=== PATIENT | female | born 1985 | race Caucasian/White ===

== ENCOUNTER 2022-05-11 01:47 | Day surgery (SDC) | payer BC, SELFPAY ==
[2022-05-11] VITALS (18 sets, daily range): BP systolic 108–153; BP diastolic 58–94; PULSE 64–83; RESP 12–20; TEMP 36.2–36.9; O2SAT 93–98; BMI 40.3
--- NOTE | ~2022-05-11 | US_ITS ---
EXAMINATION: US ABDOMEN LIMITED CLINICAL INFORMATION: Right upper quadrant pain. COMPARISON: None TECHNIQUE: Real-time imaging of the right upper quadrant abdominal viscera. FINDINGS: PANCREAS: The visualized proximal portion of the pancreas is unremarkable. The distal portion is obscured secondary to overlying bowel gas. LIVER: The liver is normal in size. The liver contour is normal. Parenchymal echogenicity is normal. No focal hepatic lesion. There is no intrahepatic biliary duct dilatation seen. GALLBLADDER: There is a gallstone in the gallbladder neck which appears impacted. Gallbladder wall thickness is at the upper limits of normal. Upper quadrant tenderness was reported during the exam. COMMON BILE DUCT: Normal in caliber measuring 0.3 cm in diameter. RIGHT KIDNEY: No hydronephrosis. No renal calculi or focal parenchymal lesions. The kidney measures 13.2 cm in maximum dimension. FREE FLUID: None. US/US abdomen limited IMPRESSION: Gallstone which appears impacted at the gallbladder neck. While there is no significant wall thickening, right upper quadrant tenderness was reported, which could indicate cholecystitis in the proper clinical setting. If warranted, this may be more definitively assessed with nuclear medicine hepatobiliary scan.
--- NOTE | 2022-05-11 02:14 | ED.BACK ---
HPI - Back Pain/Injury General Chief Complaint: General Medical Stated Complaint: back pain; no injury Time Seen by Provider: 05/11/22 02:13 Source: patient Mode of arrival: ambulatory Limitations: no limitations History of Present Illness HPI Narrative: 37 yo female with hx of GERD notes since 10pm c/o R posterior rib pain wrapping around RUQ with some abdominal pain. She states her stomach has felt off all day. She has had pain like this in the past that has responded to pain medications. No trauma reported. Had food at home. Mild nausea. Not on OCPs, no recent procedures or travel. MD elicited complaint: other (R back/R abdominal pain) Pertinent past history: other (similar episodes) Onset (ago): hour(s) (10pm) Timing: constant Severity: moderate Similar Symptoms Previously: Yes Quality: dull, stabbing and aching Location: right flank Radiation: abdomen Exacerbating factors: none Associated symptoms: other (nausea) Treatments prior to arrival: other medications and other medications Work related injury: No Related Data Allergies Allergy/AdvReac Type Severity Reaction Status Date / Time No Known Allergies Allergy Verified 05/11/22 02:06 Review of Systems Review of Systems: Constitutional : No Weight loss, No Fever, No Chills ENT/Mouth : No sore throat, No Rhinorrhea Eyes: No Swelling, No Redness Cardiovascular : No Chest Pain, No SOB, NoEdema Respiratory : No Cough, No Sputum, No Wheezing Gastrointestinal : Positive Nausea, no Positive Vomiting, no Diarrhea, positive abdominal Pain, No Hematochezia, No Melena Genitourinary : No Dysuria, No Urinary Frequency, No Hematuria, No Urgency Musculoskeletal : No joint pain, No Myalgias, No Joint Swelling, pos back pain Skin : No Skin Lesions, No rash Neuro : No Weakness, No Numbness, No Dizziness, No Headache Psych : No Anxiety/Panic, No Depression Heme/Lymph: No Bruising, No Lymphadenopathy Endocrine : No Polyuria, No Polydipsia All other systems reviewed and are negative. [facility] Past Medical History Medical History GERD (gastroesophageal reflux disease) PCOS (polycystic ovarian syndrome) Social History Social History (Updated 05/11/22 @ 02:58 by Huma Mcbride DO) Patient Tobacco Use Status: Never used Tobacco Advance Directives: No Advance Directives Information Provided: Yes Physical Exam Vital Signs: Vital Signs: Last Vital Signs Temp 98.2 F 05/11/22 02:02 Pulse 66 05/11/22 02:02 Resp 16 05/11/22 02:02 BP 137/94 H 05/11/22 02:02 Pulse Ox 96 05/11/22 02:02 O2 Del Method 05/11/22 02:02 BMI result Body Mass Index 40.3 Appearance: Alert. Oriented X3. No acute distress. Eyes: Pupils equal, round and reactive to light. ENT: Pharynx normal. Neck: Normal inspection. Neck supple. CVS: Normal heart rate and rhythm. Pulses normal. Respiratory: No respiratory distress. Breath sounds normal. Abdomen: Soft + alicia's sign, mild epigastric ttp no rebound Back: nontender, no CVA ttp Skin: Skin warm and dry. Normal skin color. Normal skin turgor. Extremities: No lower extremity edema. No calf ttp Neuro: Oriented X 3. No motor deficit. No sensory deficit. Course Course Course Narrative: Dr. Seo aware and will see patient this AM MDM - Back Pain/Injury MDM Narrative Medical decision making narrative: 37 yo female hx of PCOS and GERD here with c/o epigastric and RUQ pain that originates in back. She is PERC negative, pain is atraumatic. Has had similar episodes in the past. At this time will obtain UA, basic labs, IVF, IV pain medications, US to evaluate GB. Dispo per results and findings. Lab Data Result diagrams: 05/11/22 03:03 05/11/22 03:03 Labs: Lab Results 05/11/22 05/11/22 05/11/22 Range/Units 03:03 03:03 03:03 WBC 10.2 (4.8-10.8) X10*3/uL RBC 4.52 (4.20-5.50) X10*6/uL Hgb 12.3 (12.0-16.0) g/dl Hct 39.0 (37.0-47.0) % MCV 86.3 (80.0-98.0) fL MCH 27.2 (27.0-33.0) pg MCHC 31.5 (31.0-35.0) g/dl RDW 13.8 (11.0-16.0) % Plt Count 441 H (160-400) X10*3/uL MPV 9.4 (9.4-12.3) fL Immature Gran % (Auto) 0.4 (0.0-0.4) % Neut % (Auto) 63.2 (45-73) % Lymph % (Auto) 26.0 (20-40) % [place] % (Auto) 5.5 (2-11) % Eos % (Auto) 3.9 (0-4) % Baso % (Auto) 1.0 (0-2) % Lymph # (Auto) 2.6 (1.2-4.9) X10*3/uL [place] # (Auto) 0.6 (0.1-1.2) X10*3/uL Eos # (Auto) 0.4 (0.0-0.4) X10*3/uL Baso # (Auto) 0.1 (0.0-0.2) X10*3/uL Abs Immat Gran (auto) 0.04 H (0.00-0.03) X10*3/uL Absolute Neuts (auto) 6.4 (2.0-8.3) x10*3/uL Absolute Nucleated RBC 0.000 (0.0-0.012) X10*3/uL Nucleated RBC % (auto) 0.0 (0.0-0.2) /100WBC Sodium 138 (135-145) mmol/L Potassium 4.8 (3.3-5.1) mmol/L Chloride 105 (96-108) mmol/L Carbon Dioxide 23 (22-29) mmol/L Anion Gap 15 (12-20) BUN 15 (9-16) mg/dL Creatinine 0.88 (0.5-1.4) mg/dL Estim Creat Clear Calc 118.2 Estimated GFR > 60 Random Glucose 108 (60-115) mg/dL Calcium 9.1 (8.4-10.2) mg/dL Magnesium 1.9 (1.6-2.6) mg/dL Total Bilirubin 0.5 (0.0-1.0) mg/dL Direct Bilirubin 0.2 (0.0-0.5) mg/dL AST 24 (5-31) U/L ALT 25 (0-31) U/L Alkaline Phosphatase 96 (39-117) U/L Total Protein 7.7 (6.5-8.0) g/dL Albumin 4.3 (3.5-5.0) g/dL Lipase 23 (8-78) U/L Beta HCG, Quant < 2 mIU/mL COVID-19 (JANINA) Negative (Negative) COVID-19 Clin Com See Note Discharge Plan Discharge Clinical Impression: Biliary colic Patient Disposition: Still a Patient
[2022-05-11 03:09] LABS: MANUAL DIFF FLAG NO
[2022-05-11 03:10] LABS: Basophils Absolute Auto 0.1 X10*3/uL (0.0-0.2); Eosinophils Absolute Auto 0.4 X10*3/uL (0.0-0.4); Eosinophils Percent Auto 3.9 % (0-4); Hemoglobin 12.3 g/dl (12.0-16.0); Imm Gran Abs Auto 0.04 X10*3/uL (0.00-0.03); Imm Gran Pct Auto 0.4 % (0.0-0.4); Lymphocytes Absolute Auto 2.6 X10*3/uL (1.2-4.9); Mean Corpuscular HGB Conc 31.5 g/dl (31.0-35.0); Mean Corpuscular Hemoglobin 27.2 pg (27.0-33.0); Mean Corpuscular Volume 86.3 fL (80.0-98.0); Mean Platelet Volume 9.4 fL (9.4-12.3); Monocytes Absolute Auto 0.6 X10*3/uL (0.1-1.2); Monocytes Percent Auto 5.5 % (2-11); Neutrophils Absolute Auto 6.4 x10*3/uL (2.0-8.3); Neutrophils Percent Auto 63.2 % (45-73); Platelet Count 441 X10*3/uL (160-400); Red Blood Count 4.52 X10*6/uL (4.20-5.50); Red Cell Distribution Width 13.8 % (11.0-16.0); White Blood Count 10.2 X10*3/uL (4.8-10.8)
[2022-05-11 03:23] LABS: COVID-19 Test Negative (Negative)
[2022-05-11 03:33] LABS: Alanine Aminotransferase 25 U/L (0-31); Albumin Level 4.3 g/dL (3.5-5.0); Alkaline Phosphatase 96 U/L (39-117); Anion Gap 15 (12-20); Aspartate Amino Transferase 24 U/L (5-31); Bilirubin Direct 0.2 mg/dL (0.0-0.5); Bilirubin Total 0.5 mg/dL (0.0-1.0); Blood Urea Nitrogen 15 mg/dL (9-16); Calcium 9.1 mg/dL (8.4-10.2); Carbon Dioxide 23 mmol/L (22-29); Chloride 105 mmol/L (96-108); Creatinine Clr Calc Pharmacy 118.2; Estimated Glomerular Filt Rate > 60; Glucose Random 108 mg/dL (60-115); Lipase 23 U/L (8-78); Magnesium 1.9 mg/dL (1.6-2.6); Potassium 4.8 mmol/L (3.3-5.1); Sodium 138 mmol/L (135-145); Total Protein 7.7 g/dL (6.5-8.0)
[2022-05-11] MEDS: Famotidine/PF 20 MG/2 ML VIAL IVPUSH (03:34)
[2022-05-11] MEDS: 0.9 % Sodium Chloride 1,000 ML 999 ML IVCONT (03:34)
[2022-05-11] MEDS: ondansetron HCL 4 MG/2 ML VIAL IVPUSH ×3 (03:35→13:32)
[2022-05-11] MEDS: Ketorolac Tromethamine 15 MG/ML VIAL 30 MG IVPUSH (03:36)
[2022-05-11 03:39] LABS: HCG Quantitative < 2 mIU/mL
--- NOTE | 2022-05-11 03:39 | PC.NURSE ---
pt a&o no sob or chest pain. pt having nausea and abd pain. 20g placed in left AC. Medicated per Oct. Will continue to monitor. pt taken to [facility] sound.
[2022-05-11] MEDS: Lactated Ringers 1,000 ML 100 ML IVCONT ×3 (05:49→23:10)
--- NOTE | 2022-05-11 05:53 | PC.NURSE ---
pt resting in bed. pt report to be comfortable at this time. LR started. Will continue to monitor. Pt is NPO at this time.
[2022-05-11] MEDS: Morphine Sulfate 4 MG/ML CARTRIDGE IVPUSH (06:40)
--- NOTE | 2022-05-11 07:05 | PC.NURSE ---
pt resting comfortable at this time pain level 0/10. pt is Npo. Will report off on coming nurse.
--- NOTE | 2022-05-11 07:48 | PM.HPGS ---
History of Present Illness History of Present Illness Date of Service: 05/11/22 Chief complaint: back pain; no injury Narrative: Krystal Mendez is a 37 year old female presenting with complaints of abdominal pain in the right subscapular region radiating to the right upper quadrant. The pain began approximately 22:00 yesterday (05/10/2022) remained constant throughout the night. She reported a previous episode of similar pain which resolved spontaneously. When this current pain did not improve she presented to the emergency department for further evaluation. She was noted to be tender in the right upper quadrant with a positive Kwan sign. Admitting laboratories revealed a normal WBC and normal liver function tests. Ultrasound the abdomen however revealed gallstones within the gallbladder impacted in the neck of the gallbladder. No wall thickening or pericholecystic fluid was identified but the patient was tender with palpation of the gallbladder with the ultrasound probe. The patient currently feels somewhat improved after received IV pain medications but still has some mild discomfort in the right upper quadrant. She denies nausea, vomiting, fever or chills. Review of Systems Review of Systems: Yes all other systems are reviewed and are negative Constitutional: Constitutional: Denies chills, Denies fever(s), Denies night sweats and Denies weakness Cardiovascular: Cardiovascular: Denies chest pain, Denies irregular heart rhythm, Denies palpitations and Denies dyspnea Respiratory: Respiratory: Denies chest congestion, Denies cough and Denies dyspnea Gastrointestinal: Gastrointestinal: Reports as per HPI, Reports abdominal pain, Reports heartburn, Denies nausea and Denies vomiting Neurologic: Denies weakness Endocrine: Endocrine: Denies palpitations Hematologic/Lymphatic: Hematologic/Lymphatic: Denies lymphadenopathy [facility] Past Medical History Medical History GERD (gastroesophageal reflux disease) PCOS (polycystic ovarian syndrome) Social History Social History Patient Tobacco Use Status: Never used Tobacco Advance Directives: No Advance Directives Information Provided: Yes Meds Allergies Allergy/AdvReac Type Severity Reaction Status Date / Time No Known Allergies Allergy Verified 05/11/22 02:06 Active Medications: Current Medications Hydromorphone HCl (Hydromorphone Hcl 0.5 Mg/0.5 Ml Syringe) 0.5 mg IVPUSH Q3H PRN; Protocol PRN Reason: Pain, Severe (Pain Scale 7-10) Lactated Ringer's (Lr) 1,000 mls @ 100 mls/hr IVCONT .Q10H NITA Last Admin: 05/11/22 05:49 Dose: 100 mls/hr Ondansetron HCl (Ondansetron Hcl 4 Mg/2 Ml Vial) 4 mg IVPUSH QID PRN PRN Reason: Nausea Physical Exam Vital Signs: Vital Signs: Last Vital Signs Temp 98.2 F 05/11/22 02:02 Pulse 66 05/11/22 02:02 Resp 16 05/11/22 06:40 BP 113/80 05/11/22 07:05 Pulse Ox 96 05/11/22 02:02 O2 Del Method 05/11/22 02:02 BMI result Body Mass Index 40.3 Const: General: cooperative, no acute distress and well developed Nutritional Appearance: well nourished Orientation/consciousness: patient oriented x3 Limitations: no limitations HEENT: Head: Yes normocephalic and Yes atraumatic Ears: hearing grossly normal bilaterally Resp: Effort & Inspection: normal respiratory effort, no audible wheezes, no cough and no respiratory distress GI: Inspection: Yes normal to inspection Palpation (GI): Soft to palpation, Tenderness to palpation present (GI) in the RUQ; Kwan's sign negative, no guarding, not rigid, No hepatosplenomegaly present and No Rebound tenderness present Percussion: Yes normal to percussion Auscultation: normal bowel sounds Rectal Exam - Female: deferred Skin: General skin exam: no rashes or lesions noted Neuro: General: patient oriented x3 and moves all extremities Extrem: General: Yes no clubbing, cyanosis or edema Results Results Labs: Short CBC 05/11/22 Range/Units 03:03 WBC 10.2 (4.8-10.8) X10*3/uL Hgb 12.3 (12.0-16.0) g/dl Hct 39.0 (37.0-47.0) % Plt Count 441 H (160-400) X10*3/uL BMP 05/11/22 03:03 Sodium 138 Potassium 4.8 Chloride 105 Carbon Dioxide 23 BUN 15 Creatinine 0.88 Calcium 9.1 Liver Function 05/11/22 Range/Units 03:03 Total Bilirubin 0.5 (0.0-1.0) mg/dL Direct Bilirubin 0.2 (0.0-0.5) mg/dL AST 24 (5-31) U/L ALT 25 (0-31) U/L Alkaline Phosphatase 96 (39-117) U/L Albumin 4.3 (3.5-5.0) g/dL Assessment and Plan (1) Acute cholecystitis due to biliary calculus: Status: Acute Plan 37-year-old female patient presenting with complaints of abdominal pain in the right subscapular region radiating into the right upper quadrant. She has had previous episodes of similar pain but never to this severity. Workup revealed impacted gallstone at the neck of the gallbladder with tenderness to palpation of the gallbladder with the ultrasound probe. Findings are suggestive of acute cholecystitis due to a biliary calculus. Because of the location of the stone patient is at increased risk for recurring episodes of similar pain. I recommended a laparoscopic or possible open cholecystectomy and after discussion of the procedure, risks, and alternatives, she consents to the surgery. She has been added onto the operative schedule for today. Quality Stroke Does the patient have a stroke diagnosis?: No VTE Prior VTE?: No VTE Risk Level:: Surgical - moderate VTE Device Contraindication: N/A - Device Ordered VTE Drug Contraindication: Treatment Not Indicated (Patient scheduled for laparoscopic cholecystectomy this morning) Procedures Date of Service Date of Service: 05/11/22
--- NOTE | 2022-05-11 08:32 | PHA.MEDREC ---
Pharmacy Consult ? Medication Reconciliation Pharmacy has completed the medication reconciliation.Spoke with patient in the ED
--- NOTE | 2022-05-11 10:52 | P.CONAN_ITS ---
[facility] Active Problems Active Problems: All Active Problems (Updated 05/11/22 @ 07:53 by Anthony Seo MD) Acute cholecystitis due to biliary calculus (Acute) Biliary colic (Acute) Past Medical History Medical History GERD (gastroesophageal reflux disease) PCOS (polycystic ovarian syndrome) Family History Family history of problems with anesthesia: No Surgical History History of Problems with Anesthesia: No Social History Social History Patient Tobacco Use Status: Current someday Tobacco user Tobacco use type: Cigarette Use of substances other than those prescribed or required for medical reasons: No Are you DNR?: No Advance Directives: No Advance Directives Information Provided: Yes Meds Allergies Allergy/AdvReac Type Severity Reaction Status Date / Time No Known Allergies Allergy Verified 05/11/22 02:06 Active Medications: Current Medications Fentanyl (Fentanyl Citrate/Pf 100 Mcg/2 Ml Vial) 50 mcg IVPUSH Q5M PRN; Protocol PRN Reason: Pain, Severe (Pain Scale 7-10) Hydromorphone HCl (Hydromorphone Hcl 0.5 Mg/0.5 Ml Syringe) 0.5 mg IVPUSH Q3H PRN; Protocol PRN Reason: Pain, Severe (Pain Scale 7-10) Lactated Ringer's (Lr) 1,000 mls @ 100 mls/hr IVCONT .Q10H NITA Last Admin: 05/11/22 05:49 Dose: 100 mls/hr Lactated Ringer's (Lr) 1,000 mls @ 50 mls/hr IVCONT .Q20H [facility] Ondansetron HCl (Ondansetron Hcl 4 Mg/2 Ml Vial) 4 mg IVPUSH QID PRN PRN Reason: Nausea Oxycodone HCl (Oxycodone Hcl Immed Release 5 Mg Tablet) 5 mg PO ONCE PRN PRN Reason: Pain, Severe (Pain Scale 7-10) Home Medications Medication Instructions Recorded Confirmed Last Taken Type omeprazole 20 mg capsule,delayed 20 mg PO DAILY PRN Acid Reflux 05/11/22 05/11/22 Unknown History release Exam Exam Date and Time: May 11, 2022 1052 Height,Weight and Vital Signs: Height 5 ft 8 in Weight 120.202 kg Last Vital Signs Temp 97.2 F 05/11/22 10:24 Pulse 70 05/11/22 10:24 Resp 16 05/11/22 10:24 BP 119/69 05/11/22 10:24 Pulse Ox 97 05/11/22 10:24 O2 Del Method 05/11/22 10:24 Pertinent Lab Results Pertinent Lab Results: Laboratory Tests 05/11/22 05/11/22 05/11/22 03:03 03:03 03:03 WBC 10.2 RBC 4.52 Hgb 12.3 Hct 39.0 MCV 86.3 MCH 27.2 MCHC 31.5 RDW 13.8 Plt Count 441 H MPV 9.4 Immature Gran % (Auto) 0.4 Neut % (Auto) 63.2 Lymph % (Auto) 26.0 [place] % (Auto) 5.5 Eos % (Auto) 3.9 Baso % (Auto) 1.0 Lymph # (Auto) 2.6 [place] # (Auto) 0.6 Eos # (Auto) 0.4 Baso # (Auto) 0.1 Abs Immat Gran (auto) 0.04 H Absolute Neuts (auto) 6.4 Absolute Nucleated RBC 0.000 Nucleated RBC % (auto) 0.0 Sodium 138 Potassium 4.8 Chloride 105 Carbon Dioxide 23 Anion Gap 15 BUN 15 Creatinine 0.88 Estim Creat Clear Calc 118.2 Estimated GFR > 60 Random Glucose 108 Calcium 9.1 Magnesium 1.9 Total Bilirubin 0.5 Direct Bilirubin 0.2 AST 24 ALT 25 Alkaline Phosphatase 96 Total Protein 7.7 Albumin 4.3 Lipase 23 Beta HCG, Quant < 2 COVID-19 (JANINA) Negative COVID-19 Clin Com See Note Airway Mallampati Class: II (Top front left venere) TM Dist: >3cm Neck ROM: Full Heart: rrr Lungs: cta Assessment and Plan Assessment Anesthesia Assessment: Anesthesia Plan Discussed and Chart Reviewed Final Anesthetic Review Family History of Problems with Anesthesia: No History of Problems with Anesthesia: No NPO: Yes ASA Class: II and III Final Preanesthetic Review: No Changes in Pt Med Stat, Meds/Allgs Chart Reviewed and Consent Obtained/Reviewed Patient Risk: Intermediate Procedure Risk: Intermediate Anesthetic Plan Anesthetic Plan: GA Disposition: Standard PACU
[2022-05-11] MEDS: Lactated Ringers 1,000 ML 50 ML IVCONT (10:56)
--- NOTE | 2022-05-11 13:06 | W.PM.OPN ---
Operative Note Operative Note Date of Service: 05/11/22 Narrative: Preoperative diagnosis: Acute cholecystitis due to cholelithiasis Postoperative diagnosis: Same Procedure: Laparoscopic cholecystectomy Surgeon: Anthony Seo MD Results Engineer: VEDA Smith Anesthesia: General endotracheal Indications for procedure: 37-year-old female patient presenting with complaints of abdominal pain in the right back radiating into the right upper quadrant found to have an impacted gallstone at the gallbladder. Patient had tenderness in the right upper quadrant with a positive Kwan sign. Operative findings: Acute cholecystitis with a markedly distended gallbladder edematous wall. Gallbladder fluid was hydropic consistent with the obstructed gallbladder Specimen: gallbladder Estimated blood loss: less than 2 mL Complications: non Procedure details: Patient was brought to the OR and placed in a supine position. After administering general anesthesia the patient's abdomen was prepped with ChloraPrep and draped in a sterile fashion. Local anesthesia consisting of 0.5% Sensorcaine without epinephrine was infiltrated in a periumbilical region. A 5 mm incision was made above the umbilicus in a transverse fashion. The Veress needle was then inserted while elevating abdominal cavity with towel clips. After positive drop test the abdomen was insufflated to a pressure of 15 mm of mercury. The Veress needle was then removed and a 5 mm trocar inserted. The camera was inserted in the abdomen explored. A 12 mm trocar was then placed in the epigastrium. Two 5 mm trocars placed in the right upper quadrant by the assistant baseball coach. The patient was placed in reverse Trendelenburg positioning and rotated to the left. The gallbladder was grasped with the fundus and retracted cephalad by the assistant baseball coach. The infundibulum was then grasped and retracted away from the liver bed, also by the assistant baseball coach. The Dolphin dissected was then used by the surgeon to dissect the peritoneum off the infundibulum to reveal the junction with the cystic duct. Cystic artery was noted slightly medial and posterior to the cystic duct. After obtaining a critical view the cystic duct was doubly clipped and divided. The cystic artery was then doubly clipped and divided. The gallbladder was then dissected off the liver bed using electrocautery with an L hook. Hemostasis was assured all times using the electrocautery. When the gallbladder is completely dissected off the liver bed was placed in an Endo-Catch bag and brought out through the epigastric incision. The gallbladder was sent to pathology for further examination. The abdomen was then re-examined. The liver bed was irrigated and suctioned dry. No bleeding or bile leak could be identified. CO2 was then evacuated and all trocars removed. Fascia was closed at the epigastric incision using a [id number] Polysorb suture. Skin was closed in all incisions using a subcuticular 4 0 Polysorb suture by both the surgeon and assistant baseball coach. Sterile dressings consisting of Steri-Strips, 2 x 2 gauze, and Tegaderm were then applied. The patient tolerated the procedure well. Sponge instrument and needle counts reported as correct. The patient was transferred to PACU in stable condition.
[2022-05-12 03:13] VITALS: BP 112/60; PULSE 72; RESP 14; TEMP 36.1; O2SAT 93
[2022-05-12 07:46] VITALS: BP 106/62; PULSE 72; RESP 16; TEMP 36.6; O2SAT 94
--- NOTE | 2022-05-12 07:54 | PM.PNGS ---
Subjective Subjective Date of Service: 05/12/22 Patient reports: no new complaints Interval history: The patient is seen in coverage. She reports that she has no pain, tolerated clear liquids and has no nausea, vomiting or new complaints of chest pain, trouble breathing. She is interested in eating more food, had her questions regarding diet/low-fat food answered and appears stable for discharge Physical Exam Vital Signs: Vital Signs: Last Vital Signs Temp 97.8 F 05/12/22 07:46 Pulse 72 05/12/22 07:46 Resp 16 05/12/22 07:46 BP 106/62 05/12/22 07:46 Pulse Ox 94 05/12/22 07:46 O2 Del Method 05/12/22 07:46 O2 Flow Rate 2 05/11/22 14:34 BMI result Body Mass Index 40.3 Abdomen is obese and soft with appropriate incisional tenderness. Dressings are clean, dry and intact and Tegaderm was in place. Objective Data Active Medications Hydromorphone HCl (Hydromorphone Hcl 0.5 Mg/0.5 Ml Syringe) 0.5 mg IVPUSH Q3H PRN; Protocol PRN Reason: Pain, Severe (Pain Scale 7-10) Lactated Ringer's (Lr) 1,000 mls @ 100 mls/hr IVCONT .Q10H NITA Last Admin: 05/11/22 23:10 Dose: 100 mls/hr Documented By: ELIGIO Omeprazole (Omeprazole 20 Mg Capsule.Dr) 20 mg PO DAILY PRN PRN Reason: Acid Reflux Ondansetron HCl (Ondansetron Hcl 4 Mg/2 Ml Vial) 4 mg IVPUSH QID PRN PRN Reason: Nausea Last Admin: 05/11/22 13:32 Dose: 4 mg Documented By: CHRISTOPHER Oxycodone HCl (Oxycodone Hcl Immed Release 5 Mg Tablet) 5 mg PO Q6H PRN PRN Reason: Pain, Moderate (Pain Scale 4-6 Zolpidem Tartrate (Zolpidem Tartrate 5 Mg Tablet) 5 mg PO BEDTIME PRN PRN Reason: Insomnia Labs CBC & Chem 7: 05/11/22 03:03 05/11/22 03:03 Procedures Date of Service Date of Service: 05/12/22 Progress Note: A&P Assessment and plan (1) Acute cholecystitis due to biliary calculus: Status: Acute (2) Biliary colic: Status: Acute Plan Advanced diet to low-fat Plan for discharge later this morning after breakfast. Time Spent With Patient Time: Total time spent is greater than 50% in coordination of care (as documented) at patient's floor/unit and/or counseling patient: Quality Stroke Does the patient have a stroke diagnosis?: No VTE Prior VTE?: No VTE Risk Level:: Surgical - moderate VTE Device Contraindication: N/A - Device Ordered VTE Drug Contraindication: Treatment Not Indicated (Patient scheduled for laparoscopic cholecystectomy this morning)
--- NOTE | 2022-05-12 10:39 | MHC.CM.PN ---
PT DISCHARGING HOME WITH NO SERVICES PT TO ARRANGE TRANSPORT
--- NOTE | 2022-05-12 11:17 | HO.POSTANES ---
Post Anesthesia Evaluation Post Anesthesia Evaluation Vital Signs: Vital Signs Temp Pulse Resp BP Pulse Ox O2 Del Method 05/12/22 07:46 97.8 F 72 16 106/62 94 Room Air 05/12/22 03:13 97 F 72 14 112/60 93 Room Air 05/11/22 23:35 97.9 F 76 18 108/58 L 94 Room Air Anesthesia: General Endotracheal-GETA Mental Status: Awake Pain Control: Satisfactory Nausea/Vomiting: None Hydration: Adequate Anesthesia-Related Issues: No Anes. Related Issues
[2022-05-12 11:22] VITALS: BP 110/61; PULSE 99; RESP 18; TEMP 36.8; O2SAT 92
== END 2022-05-12 12:59 | disposition home or self-care (01) ==
LOC: HO.ED 07:47 → HO.SSS 08:28 → HO.S3 14:45
PROVIDERS: Emergency Provider Emergency Medicine; PCP Nurse Practitioner; Visit Provider Surgery
PROC: 0FT44ZZ Resection of Gallbladder, Percutaneous Endoscopic Approach (ICD-10-PCS; CPT 47562; principal; 2022-05-11 11:00)
DX: K80.00 Calculus of gallbladder with acute cholecystitis without obstruction (principal); K82.1 Hydrops of gallbladder; R10.13 Epigastric pain; K21.9 Gastro-esophageal reflux disease without esophagitis; E28.2 Polycystic ovarian syndrome; Z79.899 Other long term (current) drug therapy; Z20.822 Contact with and (suspected) exposure to COVID-19
CPT/HCPCS: 47562; 76705; 80048; 80076; 83690; 83735; 84702; 85025; 87635; 88304; 96361; 96374; 96375; 96376; 99284; 99285; J1100; J1885; J2270; J2405; J2795; J3010

== ENCOUNTER 2025-04-25 12:25 | Emergency (ER) | payer BC, SELFPAY ==
[2025-04-25 12:40] VITALS: BP 120/81; PULSE 64; RESP 18; TEMP 36.8; O2SAT 98; BMI 33.0
--- NOTE | 2025-04-25 12:41 | ECG_ITS ---
Test Reason : PAIN Blood Pressure : */* mmHG Vent. Rate : 56 BPM Atrial Rate : 56 BPM P-R Int : 150 ms QRS Dur : 100 ms QT Int : 454 ms P-R-T Axes : 86 74 67 degrees QTcB Int : 438 ms Sinus bradycardia Otherwise normal ECG No previous ECGs available Referred By: De Stapleton Electronically Signed By: BONIFACIO MARTÍNEZ
--- NOTE | 2025-04-25 12:41 | ED.GENADULT ---
HPI - General Adult General Chief complaint: Chest Pain Stated complaint: Moderate Back pain Time Seen by Provider: 04/25/25 14:54 Source: patient, RN notes reviewed and old records reviewed Mode of arrival: ambulatory Limitations: no limitations History of Present Illness ED Provider: Pieter HPI narrative: 40-year-old female with past medical history significant for GERD presents for evaluation of chest pain that radiates to her back. The pain started 4 days ago. It initially started with coughing. She denies any shortness of breath Denies any abdominal pain, nausea, vomiting. She went to urgent care and had a normal chest x-ray, negative viral swabs and a normal EKG. She was sent here for further evaluation and management Currently the patient's pain is abdominal, 5/10 No other complaints or concerns at this time Related Data Home Medications ?Medication ?Instructions ?Recorded ?Confirmed omeprazole 20 mg capsule,delayed 20 mg PO DAILY PRN Acid Reflux 05/11/22 05/11/22 release Previous Rx's ?Medication ?Instructions ?Recorded oxycodone 5 mg tablet 5 mg PO Q6H PRN pain (scale score 05/11/22 7-10) #15 tabs Allergies Allergy/AdvReac Type Severity Reaction Status Date / Time No Known Allergies Allergy Verified 04/25/25 12:42 Review of Systems Constitutional: Constitutional: Denies body ache(s), Denies chills, Denies fatigue, Denies fever(s) and Denies headache(s) Eyes: Eyes: Denies blurry vision ENT: Denies headache(s) Cardiovascular: Cardiovascular: Reports chest pain, Denies dyspnea and Denies dyspnea on exertion Respiratory: Respiratory: Reports cough, Reports pain with cough, Denies dyspnea and Denies dyspnea on exertion Gastrointestinal: Gastrointestinal: Denies abdominal pain Genitourinary: Genitourinary: Denies dysuria Musculoskeletal: Musculoskeletal: Reports back pain Integumentary/Breasts: Skin/Breast: Denies rash Neurologic: Denies headache(s) Endocrine: Endocrine: Denies fatigue [facility] Past Medical History Medical History (Updated 04/25/25 @ 14:56 by De Stapleton) Biliary colic PCOS (polycystic ovarian syndrome) GERD (gastroesophageal reflux disease) Surgical History (Updated 05/25/22 @ 10:38 by WILBERT Mckeon) History of laparoscopic cholecystectomy (05/11/22) Social History Social History Household Members: Family Housing: House Do you presently have visiting nurse or other home services: No Patient Tobacco Use Status: Never used Tobacco Tobacco use type: Cigarette Advance Directives: No Advance Directives Information Provided: No Do you have a plan to hurt others: No Plan Physical Exam ED Vital Signs: Vital Signs - 24 hr 04/25/25 12:40 04/25/25 15:21 Temperature 98.3 F 98.3 F Pulse Rate 64 64 Respiratory Rate 18 18 Blood Pressure 120/81 120/81 Pulse Oximetry 98 98 Oxygen Delivery Method Room Air Room Air BMI result Body Mass Index 33.0 Const General: healthy appearing, comfortable, no acute distress, alert and awake Nutritional Appearance: well nourished Orientation/consciousness: patient oriented x3 HENMT Head: Yes normocephalic and Yes atraumatic Eyes Eyelids: Yes eyelids normal Conjunctivae: conjunctivae normal Sclerae: sclerae normal Corneas: corneas normal Pupils: Equal, round and reactive pupils present EOM: EOMs intact bilaterally Neck Neck: Yes full ROM Resp Effort & Inspection: normal respiratory effort, able to speak in complete sentences, no audible wheezes and not labored Auscultation: clear to auscultation bilaterally Cardio Rate: regular rate Rhythm: regular rhythm GI Inspection: No distended Palpation (GI): Soft to palpation, not firm, nontender, no guarding and not rigid Skin General skin exam: no rashes or lesions noted and elasticity normal Neuro General: patient oriented x3 Cranial nerves: Yes Equal, round and reactive pupils present and Yes Bilaterally intact EOM present Cognition (Neuro): normal cognition Extrem Other: Moving all extremities well without any obvious deformities Course Course Course Narrative: RME, this is a rapid medical exam performed by Jose Juan Stapleton please refer to primary provider for complete H&P- 40-year-old female presents for evaluation of chest pain that radiates through to her back. Symptoms started 4 days ago. She went to urgent Care had an unremarkable EKG, chest x-ray and was referred here for further evaluation and management. Plan for labs including a troponin and a repeat EKG. Medical Decision Making Medical Decision Making MDM Narrative: 40-year-old female presents for evaluation of chest pain radiating through to her back. Symptoms are worse with coughing, her lungs are clear to auscultation, vital signs are stable. EKG was ordered which shows sinus bradycardia, no ST segment elevations or depressions. Troponin is negative despite 4 days chest pain, she rules out for ACS. He is PERC negative. Chest x-ray is clear from urgent care and was able to review of the report, no pneumonia or pleural effusions. Labs are relatively reassuring. She has no history of hypertension your pressure is 120/81, less likely aorta disease. The patient is requesting discharge which I feel is appropriate at this time Differential Diagnosis Differential Diagnoses: The differential diagnosis associated with the presentation includes Chest pain Costochondritis Bronchitis Pneumonia ACS less likely Admission/Observation Consideration of admission/observation: Escalation of care including admission/observation considered Lab Data MDM Lab Attestation statement: I reviewed the patient's lab results. No leukocytosis or anemia. Normal platelet count. No electrolyte abnormalities warranting imaging. Troponin negative 04/25/25 13:00 04/25/25 13:00 Labs: Lab Results 04/25/25 04/25/25 04/25/25 Range/Units 13:00 13:01 13:13 WBC 6.6 (4.8-10.8) X10*3/uL RBC 4.23 (4.20-5.50) X10*6/uL Hgb 12.2 (12.0-16.0) g/dl Hct 37.3 (37.0-47.0) % MCV 88.2 (80.0-98.0) fL MCH 28.8 (27.0-33.0) pg MCHC 32.7 (31.0-35.0) g/dl RDW 13.2 (11.0-16.0) % Plt Count 361 (160-400) X10*3/uL MPV 9.6 (9.4-12.3) fL Immature Gran % (Auto) 0.2 (0.0-0.4) % Neut % (Auto) 53.3 (45-73) % Lymph % (Auto) 36.0 (20-40) % [place] % (Auto) 7.0 (2-11) % Eos % (Auto) 2.3 (0-4) % Baso % (Auto) 1.2 (0-2) % Lymph # (Auto) 2.4 (1.2-4.9) X10*3/uL [place] # (Auto) 0.5 (0.1-1.2) X10*3/uL Eos # (Auto) 0.2 (0.0-0.4) X10*3/uL Baso # (Auto) 0.1 (0.0-0.2) X10*3/uL Abs Immat Gran (auto) 0.01 (0.00-0.03) X10*3/uL Absolute Neuts (auto) 3.5 (2.0-8.3) x10*3/uL Absolute Nucleated RBC 0.000 (0.0-0.012) X10*3/uL Nucleated RBC % (auto) 0.0 (0.0-0.2) /100WBC Sodium 139 (135-145) mmol/L Potassium 4.0 (3.3-5.1) mmol/L Chloride 106 (96-108) mmol/L Carbon Dioxide 23 (22-29) mmol/L Anion Gap 14 (12-20) BUN 10 (9-16) mg/dL Creatinine 0.81 (0.5-1.4) mg/dL Estim Creat Clear Calc 112.2 Estimated GFR > 60 Random Glucose 89 (60-115) mg/dL Calcium 9.0 (8.4-10.2) mg/dL Total Bilirubin 1.0 (0.0-1.0) mg/dL AST 24 (5-31) U/L ALT 24 (0-31) U/L Alkaline Phosphatase 62 (39-117) U/L Troponin I High Sens < 2.7 (<3.5-17.0) ng/L Total Protein 6.9 (6.5-8.0) g/dL Albumin 4.1 (3.5-5.0) g/dL Lipase 28 (8-78) U/L Beta HCG, Quant < 2 mIU/mL Urine Color Yellow Urine Appearance Clear Urine pH 6.0 (5.0-9.0) Ur Specific [place] 1.020 (1.005-1.025) Urine Protein Negative (Neg-Trace) mg/dL Urine Glucose (UA) Negative (Negative) mg/dL Urine Ketones Trace (Negative) mg/dL Urine Blood Negative (Negative) Urine Nitrite Negative (Negative) Ur Leukocyte Esterase Negative (Negative) Urine RBC 0-2 (0-2) /HPF Urine WBC 0-5 (0-5) /HPF Ur Squamous Epith Cells 3-5 (0-2) /HPF Urine Bacteria None Seen (None Seen) Hyaline Casts 0-2 (0-2) /LPF COVID-19 (JANINA) Cancelled COVID-19 Clin Com Cancelled Influenza Type A (PCR) NEGATIVE (Negative) Influenza Type B (PCR) NEGATIVE (Negative) RSV RNA Qual (PCR) NEGATIVE (Negative) SARS-CoV-2 RNA (RT-PCR) NEGATIVE (Negative) Independent Interpretation I performed an independent interpretation of an: EKG (Sinus bradycardia with a rate of [address] segment elevations or depressions.) Discharge Plan Discharge Clinical Impression: Chest pain Patient Disposition: Home, Self-Care Instructions: Chest Pain (ED) Additional Instructions: Your workup in the ER today was reassuring. This includes your blood work, EKG. You did not have COVID or influenza. Use ibuprofen and Tylenol for any further pain. Follow-up with your primary doctor, return for new or worsening symptoms Prescriptions: No Action omeprazole 20 mg Capsule,Delayed Release(Dr/Ec) 20 mg PO DAILY PRN (Reason: Acid Reflux) oxycodone 5 mg tablet 5 mg PO Q6H PRN (Reason: pain (scale score 7-10)) Qty: 15 0RF Rx Instructions: Partial Fill upon patient request. Interventions: ED Discharge Assessment Last Done: 04/25/25 15:21 Discharge Date/Time: 04/25/25 15:22 Print Language: Korean
[2025-04-25 13:11] LABS: MANUAL DIFF FLAG NO
[2025-04-25 13:14] LABS: Hematocrit 37.3 % (37.0-47.0); Hemoglobin 12.2 g/dl (12.0-16.0); Imm Gran Abs Auto 0.01 X10*3/uL (0.00-0.03); Imm Gran Pct Auto 0.2 % (0.0-0.4); Lymphocytes Absolute Auto 2.4 X10*3/uL (1.2-4.9); Mean Corpuscular HGB Conc 32.7 g/dl (31.0-35.0); Mean Corpuscular Hemoglobin 28.8 pg (27.0-33.0); Mean Corpuscular Volume 88.2 fL (80.0-98.0); NRBC Abs Auto 0.000 X10*3/uL (0.0-0.012); NRBC Pct Auto 0.0 /100WBC (0.0-0.2); Platelet Count 361 X10*3/uL (160-400); Red Blood Count 4.23 X10*6/uL (4.20-5.50); White Blood Count 6.6 X10*3/uL (4.8-10.8)
[2025-04-25 13:16] LABS: Appearance Urine Clear; Glucose Urine UA Negative (Negative); PH 6.0 (5.0-9.0); Specific Gravity - Urine 1.020 (1.005-1.025)
[2025-04-25 13:37] LABS: Alanine Aminotransferase 24 U/L (0-31); Albumin Level 4.1 g/dL (3.5-5.0); Alkaline Phosphatase 62 U/L (39-117); Anion Gap 14 (12-20); Aspartate Amino Transferase 24 U/L (5-31); Blood Urea Nitrogen 10 mg/dL (9-16); Calcium 9.0 mg/dL (8.4-10.2); Carbon Dioxide 23 mmol/L (22-29); Chloride 106 mmol/L (96-108); Creatinine Clr Calc Pharmacy 112.2; Estimated Glomerular Filt Rate > 60; Lipase 28 U/L (8-78); Potassium 4.0 mmol/L (3.3-5.1); Sodium 139 mmol/L (135-145); Total Protein 6.9 g/dL (6.5-8.0)
[2025-04-25 13:51] LABS: Troponin-I High Sensitivity < 2.7 ng/L (<3.5-17.0)
[2025-04-25 14:14] LABS: Resp Syncy Virus RNA Qual PCR NEGATIVE (Negative); SARS COV2 PCR INHOUSE NEGATIVE (Negative)
[2025-04-25 15:21] VITALS: BP 120/81; PULSE 64; RESP 18; TEMP 36.8; O2SAT 98
== END 2025-04-25 15:22 | disposition home or self-care (01) ==
PROVIDERS: Physician Assistant; Emergency Provider Emergency Medicine; PCP Nurse Practitioner
DX: R10.9 Unspecified abdominal pain (principal); M54.9 Dorsalgia, unspecified; R05.9 Cough, unspecified; K21.9 Gastro-esophageal reflux disease without esophagitis; Z03.818 Encounter for observation for suspected exposure to other biological agents ruled out; Z79.899 Other long term (current) drug therapy
CPT/HCPCS: 36415; 80053; 81001; 83690; 84484; 84702; 85025; 87637; 93005; 99283

== ENCOUNTER → 2025-04-25 12:41 | Outpatient (BNV) | payer BC, SELFPAY | PROVIDERS: Emergency Provider Emergency Medicine; PCP Nurse Practitioner; Visit Provider Internal Medicine | DX: R00.1 Bradycardia, unspecified (principal) | CPT/HCPCS: 93010 ==